=== PATIENT | male | born 1985 | race African-American/Black ===

== ENCOUNTER 2018-10-24 08:38 | Emergency (ER) | payer MEDICAID ==
[~2018-10-24] VITALS: Ht 167.6 cm; Wt 73.0 kg
[2018-10-24] MEDS ORDERED: KETOROLAC 60MG/2ML VIAL IM ONE (09:30)
[2018-10-24 09:45] VITALS: BP 141/88
== END 2018-10-24 09:45 | disposition home or self-care (01) ==
LOC: ER 08:38
DX: G89.29 Other chronic pain (principal); M54.5 Low back pain; Z88.0 Allergy status to penicillin; Z91.018 Allergy to other foods
CPT/HCPCS: 96372; 99283; J1885; Z7610